=== PATIENT | female | born 1970 | race African-American/Black ===

== ENCOUNTER → 2020-03-11 | Outpatient (CLI) | payer OTHER ==
--- NOTE | 2020-03-11 09:54 | CARD ---
MR#: [id number] Date of Study: 03/11/2020 Ordering Physician: MELISSA PHILLIPS, Referring Physician: MELISSA PHILLIPS Tech: Mallory Last RDCS APPROVED REPORT EXAM: Two-dimensional and M-mode echocardiogram with Doppler and color Doppler. Other Information Quality : Good INDICATION Syncope 2D DIMENSIONS RVDd2.8 (2.9-3.5cm)Left Atrium(2D)2.8 (1.6-4.0cm) IVSd0.9 (0.7-1.1cm)Aortic Root(2D)2.6 (2.0-3.7cm) LVDd4.2 (3.9-5.9cm)LVOT Diameter2.1 (1.8-2.4cm) PWd1.1 (0.7-1.1cm)LVDs2.6 (2.5-4.0cm) FS (%) 36.4 %SV51.1 ml LVEF(%)60.0 (>50%) Aortic Valve AoV Peak Primo.130.8cm/sAoV VTI30.7cm AO Peak GR.6.8mmHgLVOT Peak Primo.113.9cm/s LVOT VTI 23.29cmAO Mean GR.4mmHg CALIXTO (VMAX)2.97as5HLL (VTI)2.55cm2 Mitral Valve MV E Lejknppw34.8cm/sMV DECEL MYTP158ey MV A Zfkbztxm51.6cm/sMV PXR13re E/A Ratio1.2MVA (PHT)4.55cm2 TDI E/Lateral E'6.5E/Medial E'8.7 Tricuspid Valve TR P. Tvrhulkz950de/sRAP XUFNHXWK7sbOv TR Peak Gr.85jqBnQQQI68blVs Pulmonary Vein S1 Ktzvcxsv70.3cm/sD2 Ubphbuyt69.5cm/s LEFT VENTRICLE The left ventricle is normal size. There is normal left ventricular wall thickness. The left ventricu lar systolic function is normal and the ejection fraction is within normal range. The Ejection Fracti on is 55-60%. There is normal LV segmental wall motion. The left ventricular diastolic function and f illing is normal for age. RIGHT VENTRICLE The right ventricle is normal size. The right ventricular systolic function is normal. ATRIA The left atrium size is normal. The right atrium size is normal. The interatrial septum is intact wit h no evidence for an atrial septal defect or patent foramen ovale as noted on 2-D or Doppler imaging. AORTIC VALVE The aortic valve is mildly thickened but opens well. Doppler and Color Flow revealed no significant a ortic regurgitation. There is no significant aortic valvular stenosis. MITRAL VALVE The mitral valve is normal in structure and function. There is no evidence of mitral valve prolapse. There is no mitral valve stenosis. Doppler and Color-flow revealed trace mitral regurgitation. TRICUSPID VALVE The tricuspid valve is normal in structure and function. Doppler and Color Flow revealed trace tricus pid regurgitation. The PA pressure was estimated at 22 mmHg. There is no tricuspid valve stenosis. PULMONIC VALVE The pulmonary valve is normal in structure and function. Doppler and Color Flow revealed mild pulmoni c valvular regurgitation. There is no pulmonic valvular stenosis. GREAT VESSELS The aortic root is normal in size. The ascending aorta is normal in size. The IVC is normal in size a nd collapses >50% with inspiration. PERICARDIAL EFFUSION There is no evidence of significant pericardial effusion. Critical Notification Critical Value: No <Conclusion> The left ventricular systolic function is normal and the ejection fraction is within normal range. Th e Ejection Fraction is 55-60%. There is normal LV segmental wall motion. Signed by : Martir Lawler, Electronically Approved : 03/11/2020 09:54:18
== END | disposition home or self-care (01) ==
LOC: ECHO 08:40
PROVIDERS: ATTEND Internal Medicine Cardiovascular Disease
DX: I37.1 Nonrheumatic pulmonary valve insufficiency (principal)
CPT/HCPCS: 93306

== ENCOUNTER → 2020-03-15 | Outpatient (CLI) | payer OTHER ==
[~2020-03-15] MED LIST: REGADENOSON 0.4 MG/5 ML DISP.SYRIN. IV ONE
--- NOTE | 2020-03-15 12:31 | RAD ---
MR#: [id number] Date of Study: 03/15/2020 Ordering Physician: MELISSA PHILLIPS Referring Physician: LIZBET BAH Tech: RT Jorge Fish) (N) APPROVED REPORT Test Type: Pharmacological Stress Nurse/Tech: Renata Reilly R.N. Test Indications: D O E Cardiac History: Hypertension Medications: See Electronic Medical Record Medical History: See Electronic Medical Record Resting ECG: s. rob Resting Heart Rate: 48 bpm Resting Blood Pressure: 138/74mmHg Pretest Chest Pain: No chest pain Nurse/Tech Notes S1S2, lungs sound clear Consent: The procedure was explained to the patient in lay terms. Informed consent was witnessed. Haider eout was entered into [employer]. History and Stress Test performed by RT Jorge Muro) (N) Pharm. Details Pharmacologic stress testing was performed using 0.4mg per 5ml of regadenoson given intravenously ove r 7-10 seconds. Stress Symptoms Dyspnea POST EXERCISE Reason for Termination: Infusion complete Target HR: 143 Max HR: 108 bpm Max Blood Pressure: 139/74mmHg Blood Pressure response to exercise: Normal blood pressure response during stress. Chest Pain: No. Arrhythmia: No. ST Change: No. INTERPRETATION Stress EKG Conclusion: Baseline EKG showed sinus bradycardia. No ischemic changes at peak stress. N o arrhythmias. Rest: Stress: Viability: Radiopharm.Tc99m XxlvfykerUl52o Sestamibi Dose11.5mCi 32.1mCi Duration 13min. 13min. Img Date 03/15/2020 03/15/2020 Inj-Img Lpfz55rfc. 60min. Rest Admin Site:IV - Left HandAdministrator:RT Jorge Fish)(N) Stress Admin Site: IV - Left HandAdministrator: RT Jorge Muro)(N) STRESS DATA End Diast. Vol.70.0mlAv. Heart Rate76.0bpm End Syst. Vol.15.0mlCO Index BSA0.0L/min Myocardial Bjub949.0gEject. Ceaowibq61.0% Stress Rates Pk. Fill Rate3.84EDV/secLVtime Pk. Fill 245.06msec Pk. Empty Rate4.67ESV/secLVtime Pk. Gzcfp732.30msec 1/3 Pk. Fill1.07EDV/sec Stress Scores Regional WT0.00Summed WT0.00 Regional WM0.00Summed WM1.00 Study quality was good. Left Ventricular size was Normal at Rest and Stress. Lung uptake was . Left Ventricular ejection fraction is 76%. The rest and stress images show normal perfusion, normal contraction and thickening. LV Perf. Quant 17 Seg. SSS0.00 17 Seg. SRS2.00 17 Seg. SDS0.00 Stress Defect Extent (% LAD)0.00Rest Defect Extent (% LAD)5.60Rev. Defect Extent (% LAD)0.00 Stress Defect Extent (% LCX) 0.00Rest Defect Extent (% LCX)0.00Rev. Defect Extent (% LCX)0.00 Stress Defect Extent (% RCA)0.00Rest Defect Extent (% RCA)0.00Rev. Defect Extent (% RCA)0.00 Stress Defect Extent (% GERMAINE)0.00Rest Defect Extent (% GERMAINE)3.70Rev. Defect Extent (% GERMAINE)0.00 Conclusion 1. Regadenoson cardioisotope stress test did not show any evidence of ischemia or infarct. 2. Normal left ventricular systolic function with ejection fraction calculated at 76%. 3. Low risk for cardiac events. Signed by : Melissa Phillips, Electronically Approved : 03/15/2020 12:31:19
== END | disposition home or self-care (01) ==
LOC: NM 08:30
PROVIDERS: ATTEND Internal Medicine Cardiovascular Disease
DX: I10 Essential (primary) hypertension (principal); R06.09 Other forms of dyspnea; R00.1 Bradycardia, unspecified
CPT/HCPCS: 78452; 93017; A9500; J2785

== ENCOUNTER 2020-03-28 11:47 | Inpatient (IN) | payer OTHER ==
[~2020-03-28] VITALS: Ht 162.6 cm; Wt 101.0 kg
[2020-03-28 13:03] LABS: BASO % 0 % (0-3); EOS # 0.1 x10^3/uL (0.0-0.7); EOS % 2 % (0-3); HEMATOCRIT 36.2 % (36.0-47.0); HEMOGLOBIN 11.6 g/dL (12.0-15.5); LYMPH # 1.6 x10^3/uL (1.0-4.8); LYMPH % 50 % (24-48); MEAN CORPUSCULAR HEMOGLOBIN 24 pg (25-35); MEAN CORPUSCULAR HGB CONC 32 g/dL (31-37); MEAN CORPUSCULAR VOLUME 75 fL (79-100); MONO # 0.2 x10^3/uL (0.0-1.1); MONO % 7 % (0-9); NEUT # 1.3 x10^3/uL (1.8-7.7); NEUT % 41 % (31-73); PLATELET COUNT 264 x10^3/uL (140-400); RED BLOOD COUNT 4.82 x10^6/uL (3.50-5.40); RED CELL DISTRIBUTION WIDTH 21.2 % (11.5-14.5); WHITE BLOOD COUNT 3.2 x10^3/uL (4.0-11.0)
[2020-03-28 13:12] LABS: PROTHROMBIN TIME PATIENT 12.7 SEC (11.7-14.0)
[2020-03-28 13:14] LABS: CALCIUM 9.2 mg/dL (8.5-10.1); CREATININE 1.1 mg/dL (0.6-1.0); GFR 63.4
--- NOTE | 2020-03-28 13:18 | RAD ---
CT HEAD WO CONTRAST Date: 03/28/2020 1:03 PM Clinical Indication: Reason: syncope / Spl. Instructions: / History: Comparison: None. Technique: 5 mm axial tomographic images were obtained of the head without contrast. These were viewed on brain and bone windows. One or more of the following dose reduction techniques were utilized: Automated exposure control (AEC), Adjustment of mA and/or kV according to patient size, Use of iterative reconstruction technique such as ASiR, CT scan done according to ALARA and image gently/image wisely Findings: The brain parenchyma is normal in attenuation. No intra- or extra-axial mass or fluid collection. No acute hemorrhage. The ventricles are normal in size, shape, and morphology. The sapp-white matter junction is normal. The subarachnoid cisterns are patent. The visualized paranasal sinuses are normal. The visualized portions of the orbits and globes are normal. The mastoid air cells are clear. The learning disabilities resource teacher topogram shows no lytic lesion or fracture. Impression: No acute intracranial process. Electronically signed by: Lawrence Coats MD (03/28/2020 1:15 PM) [id number]
[2020-03-28 13:20] LABS: ALBUMIN 3.4 g/dL (3.4-5.0); ALBUMIN/GLOBULIN RATIO 0.9 (1.0-1.7); MAGNESIUM 2.1 mg/dL (1.8-2.4); TOTAL BILIRUBIN 0.5 mg/dL (0.2-1.0)
[2020-03-28 13:23] LABS: ANISOCYTOSIS SLIGHT; PLT ESTIMATE ADEQUATE (ADEQUATE)
--- NOTE | 2020-03-28 13:23 | RAD ---
EXAM: Chest, single view. HISTORY: Syncope. COMPARISON: None. FINDINGS: A frontal view of the chest is obtained. There is no infiltrate, pleural effusion or pneumothorax. The heart is normal in size. There is an incidental azygos lobe. IMPRESSION: No acute pulmonary finding. Electronically signed by: Cele Bautista MD (03/28/2020 1:20 PM) [id number]
[2020-03-28 13:45] LABS: BILIRUBIN,URINE NEGATIVE (NEG); CLARITY,URINE CLEAR; COLOR,URINE YELLOW; NITRITE,URINE NEGATIVE (NEG); PROTEIN,URINE NEGATIVE (NEG-TRACE)
--- NOTE | 2020-03-28 13:53 | PHYS DOC ---
Past Medical History Past Medical History: Arthritis, Hypertension Additional Past Medical Histor: RA Past Surgical History: Tubal ligation Additional Past Surgical Histo: GASTRIC BYPASS Smoking Status: Never Smoker Alcohol Use: None General Adult EDM: Chief Complaint: SYNCOPE HPI: HPI: Patient is a 49 year old female who was sent here from her family physician clinic due to passing out in the office or having a seizure.. Patient was there for routine follow-up, staff noticed that when she was sitting in the chair she was shaking acting like she had a seizure she was passed out. Patient has history of passing out in the past and she was seen by pole framer machine and maribeth rology before but did not find a reason. Review of Systems: Review of Systems: Constitutional: Denies fever or chills. [] Eyes: Denies change in visual acuity. [] HENT: Denies nasal congestion or sore throat. [] Respiratory: Denies cough or shortness of breath. [] Cardiovascular: Denies chest pain or edema. [] GI: Denies abdominal pain, nausea, vomiting, bloody stools or diarrhea. [] : Denies dysuria. [] Musculoskeletal: Denies back pain or joint pain. [] Integument: Denies rash. [] Neurologic: Denies headache, focal weakness or sensory changes. Positive for passing out and seizure activity Endocrine: Denies polyuria or polydipsia. [] Lymphatic: Denies swollen glands. [] Psychiatric: Denies depression or anxiety. [] Heart Score: Risk Factors: Risk Factors: DM, Current or recent (<one month) smoker, HTN, HLP, family history of CAD, obesity. Risk Scores: Score 0 - 3: 2.5% MACE over next 6 weeks - Discharge Home Score 4 - 6: 20.3% MACE over next 6 weeks - Admit for Clinical Observation Score 7 - 10: 72.7% MACE over next 6 weeks - Early Invasive Strategies Allergies: Allergies: Allergies Coded Allergies Type Severity Reaction Last Updated Verified No Known Drug Allergies 03/15/20 No Physical Exam: PE: Constitutional: Well developed, well nourished, no acute distress, non-toxic appearance. [] HENT: Normocephalic, atraumatic, bilateral external ears normal, oropharynx moist, no oral exudates, nose normal. [] Eyes: PERRLA, EOMI, conjunctiva normal, no discharge. [] Neck: Normal range of motion, no tenderness, supple, no stridor. [] Cardiovascular:Heart rate regular rhythm, no murmur [] Lungs & Thorax: Bilateral breath sounds clear to auscultation [] Abdomen: Bowel sounds normal, soft, no tenderness, no masses, no pulsatile masses. [] Skin: Warm, dry, no erythema, no rash. [] Back: No tenderness, no CVA tenderness. [] Extremities: No tenderness, no cyanosis, no clubbing, ROM intact, no edema. [] Neurologic: Alert and oriented X 3, normal motor function, normal sensory function, no focal deficits noted. [] Psychologic: Affect normal, judgement normal, mood normal. [] Current Patient Data: Labs: Laboratory Tests Test 03/28/20 12:45 White Blood Count 3.2 x10^3/uL (4.0-11.0) L Red Blood Count 4.82 x10^6/uL (3.50-5.40) Hemoglobin 11.6 g/dL (12.0-15.5) L Hematocrit 36.2 % (36.0-47.0) Mean Corpuscular Volume 75 fL (79-100) L Mean Corpuscular Hemoglobin 24 pg (25-35) L Mean Corpuscular Hemoglobin Concent 32 g/dL (31-37) Red Cell Distribution Width 21.2 % (11.5-14.5) H Platelet Count 264 x10^3/uL (140-400) Neutrophils (%) (Auto) 41 % (31-73) Lymphocytes (%) (Auto) 50 % (24-48) H Monocytes (%) (Auto) 7 % (0-9) Eosinophils (%) (Auto) 2 % (0-3) Basophils (%) (Auto) 0 % (0-3) Neutrophils # (Auto) 1.3 x10^3/uL (1.8-7.7) L Lymphocytes # (Auto) 1.6 x10^3/uL (1.0-4.8) Monocytes # (Auto) 0.2 x10^3/uL (0.0-1.1) Eosinophils # (Auto) 0.1 x10^3/uL (0.0-0.7) Basophils # (Auto) 0.0 x10^3/uL (0.0-0.2) Platelet Estimate Adequate (ADEQUATE) Anisocytosis Slight Prothrombin Time 12.7 SEC (11.7-14.0) Prothrombin Time INR 1.0 (0.8-1.1) Sodium Level 139 mmol/L (136-145) Potassium Level 4.0 mmol/L (3.5-5.1) Chloride Level 105 mmol/L (98-107) Carbon Dioxide Level 22 mmol/L (21-32) Anion Gap 12 (6-14) Blood Urea Nitrogen 19 mg/dL (7-20) Creatinine 1.1 mg/dL (0.6-1.0) H Estimated GFR (Cockcroft-Gault) 63.4 BUN/Creatinine Ratio 17 (6-20) Glucose Level 85 mg/dL (70-99) Calcium Level 9.2 mg/dL (8.5-10.1) Magnesium Level 2.1 mg/dL (1.8-2.4) Total Bilirubin 0.5 mg/dL (0.2-1.0) Aspartate Amino Transferase (AST) 12 U/L (15-37) L Alanine Aminotransferase (ALT) 15 U/L (14-59) Alkaline Phosphatase 72 U/L (46-116) Troponin I Quantitative < 0.017 ng/mL (0.000-0.055) SM-Qsw-A-Type Natriuretic Peptide 156 pg/mL (0-124) H Total Protein 7.0 g/dL (6.4-8.2) Albumin 3.4 g/dL (3.4-5.0) Albumin/Globulin Ratio 0.9 (1.0-1.7) L Lipase 67 U/L (73-393) L Laboratory Tests 03/28/20 12:45 Laboratory Tests 03/28/20 12:45 Vital Signs: Vital Signs Date Time Temp Pulse Resp B/P (MAP) Pulse Ox O2 Delivery O2 Flow Rate FiO2 03/28/20 12:50 52 132/79 (96) 100 Room Air 03/28/20 11:50 97.8 18 97.8 EKG: EKG: EKG was done at 1152, heart rate of 55 bpm, normal sinus rhythm, no ST segment elevation. Radiology/Procedures: Radiology/Procedures: [][facility] [address] [place] [address] IMAGING REPORT Signed PATIENT: RONIT BERRY ACCOUNT: [id number] : 1970 LOCATION: ER AGE: 49 SEX: F EXAM STATUS: REG ER ORD. PHYSICIAN: ROLANDO VAN DO REASON: syncope PROCEDURE: CT HEAD WO CONTRAST CT HEAD WO CONTRAST Date: 03/28/2020 1:03 PM Clinical Indication: Reason: syncope / Spl. Instructions: / History: Comparison: None. Technique: 5 mm axial tomographic images were obtained of the head without contrast. These were viewed on brain and bone windows. One or more of the following dose reduction techniques were utilized: Automated exposure control (AEC), Adjustment of mA and/or kV according to patient size, Use of iterative reconstruction technique such as ASiR, CT scan done according to ALARA and image gently/image wisely Findings: The brain parenchyma is normal in attenuation. No intra- or extra-axial mass or fluid collection. No acute hemorrhage. The ventricles are normal in size, shape, and morphology. The sapp-white matter junction is normal. The subarachnoid cisterns are patent. The visualized paranasal sinuses are normal. The visualized portions of the orbits and globes are normal. The mastoid air cells are clear. The regulatory compliance director topogram shows no lytic lesion or fracture. Impression: No acute intracranial process. Electronically signed by: Yasemin Coats MD (03/28/2020 1:15 PM) [id number] DICTATED and SIGNED BY: YASEMIN COATS MD DATE: 03/28/20 1315 Course & Med Decision Making: Course & Med Decision Making Pertinent Labs and Imaging studies reviewed. (See chart for details) Patient is a 49-year-old female who was sent here from her family physician office due to seizure activity or syncopal episode while she was in the office today for a regular routine follow-up. Her family doctor wanted to be admitted to the hospital for MRI of her brain and neurology evaluation. Patient has history of passing out like this in the past, she was seen by neurologist and pole framer machine in the past but no reason was found. Patient denies any headache, no neck pain, no abdominal pain, no chest pain at this time. Dragon Disclaimer: Dragon Disclaimer: This electronic medical record was generated, in whole or in part, using a voice recognition dictation system. Departure Departure Impression: Primary Impression: Seizure Additional Impression: Syncope Disposition: 09 ADMITTED INPATIENT Admitting Physician: Efrain Sunshine Condition: STABLE Referrals: EFRAIN SUNSHINE MD (PCP) Justicifation of Admission Dx: Justifications for Admission: Justification of Admission Dx: N/A ROLANDO VAN DO Mar 28, 2020 13:53
[2020-03-28 13:55] LABS: BACTERIA,URINE 0 /HPF (0-FEW); RBC,URINE OCC /HPF (0-2); SQUAMOUS EPITHELIAL CELL,UR OCC /LPF; WBC,URINE OCC /HPF (0-4)
[2020-03-28] MEDS ORDERED: ACETAMINOPHEN 500 MG TABLET PO ONE (14:00)
[2020-03-28] MEDS ORDERED: ONDANSETRON PF 4 MG/2 ML VIAL. IV PRN (14:00)
[2020-03-28] MEDS ORDERED: HYDROcodone/APAP 5/325MG 1 TAB TABLET PO PRN (16:45)
[2020-03-28] MEDS ORDERED: UPAD15TA PO (16:48)
[2020-03-28] MEDS ORDERED: LISI10TA2 PO (16:48)
[2020-03-28] MEDS ORDERED: MELO15TA23 PO (16:48)
[2020-03-28 18:51] VITALS: BP 113/57
[2020-03-28 19:00] VITALS: BP 106/73
[2020-03-28] MEDS: HYDROcodone/APAP 5/325MG 1 TAB TABLET PO PRN (21:32)
[2020-03-28 23:00] VITALS: BP 103/62
[2020-03-29 03:00] VITALS: BP 112/71
--- NOTE | 2020-03-29 03:07 | EKG ---
[facility] [address] [place] [address] Test Date: 2020-03-28 Test Time: 11:52:37 Pat Name: RONIT BERRY Department: Room: Gender: F Mental Health Program Specialist: QUAN : 1970 Requested By: ROLANDO VAN Order Number: [id number] Reading MD: Measurements Intervals [place] Rate: 55 P: 24 [place]: 132 QRS: 47 QRSD: 78 T: 42 QT: 418 QTc: 402 Interpretive Statements SINUS RHYTHM NORMAL ECG RI6.01 No previous ECG available for comparison
[2020-03-29] MEDS: HYDROcodone/APAP 5/325MG 1 TAB TABLET PO PRN ×2 (03:28→13:11)
[2020-03-29 04:59] LABS: CHOLESTEROL/HDL RATIO 2.8
[2020-03-29 07:00] VITALS: BP 126/96
[2020-03-29] MEDS: MELOXICAM 7.5 MG TABLET PO SCH (07:47)
[2020-03-29] MEDS: UPADACITINIB 15 MG PO SCH (07:48)
[2020-03-29] MEDS: LISINOPRIL 10 MG TABLET PO SCH (07:48)
--- NOTE | 2020-03-29 09:17 | PDOC ---
Provider Note Provider Note Pt seen.H&P.done.##[id number]. Justicifation of Admission Dx: Justifications for Admission: Justification of Admission Dx: N/A WINNIE SUNSHINE MD Mar 29, 2020 09:17
[2020-03-29] MEDS ORDERED: POLYETHYLENE GLYCOL 3350 17 GM PACKET. PO PRN (09:45)
[2020-03-29 11:00] VITALS: BP 124/78
--- NOTE | 2020-03-29 11:08 | NUR ---
SW following. Discussed with RN, pt from home, regular diet. PT having EEG. Pt can't have an MRI until after seen by Dr. Granado, potential to discharge if okay with Dr. Granado. RN advised no SW needs.
--- NOTE | 2020-03-29 11:54 | HP ---
ADMIT DATE: 03/28/2020 MEDICAL HISTORY AND PHYSICAL PATIENT LOCATION: 530. REASON FOR ADMISSION TO THE HOSPITAL: Seizure activity, new onset. HISTORY OF PRESENT ILLNESS: The patient is a 49-year-old female. The patient says she was not feeling well Saturday and she has headache and thinks she may have a seizure-like activity, and she was brought to the office by her mother; and during our visit, the patient was saying that she was not feeling well, headache, and then she became unresponsive. She did not lose her pulse or blood pressure, oxygen was good, but her eyes were rolling and she was not aware of the surroundings. She did not have classical jerky movement; but after 10 minutes, she was more awake and paramedics was called in the meantime and the patient was a little bit dazed, complained of headache, a little bit of unsteady gait, and the patient was sent to the ER for further evaluation. CT head was negative. Of note, the patient had this kind of episode at least 2 times in the past. She was at [facility], had CT head 2 times, MRI of the brain 1 time. She had seen a neurologist at [facility] and he was not sure, had an EEG 1 time and she was recommended inpatient 3-day monitoring, but the patient refused that, did not want to follow with him. In the meantime, we were looking for other causes of syncopal episodes, like stress test and echo was done in the last couple of weeks ago that was normal. PAST MEDICAL HISTORY: Hypertension, rheumatoid arthritis. PAST SURGICAL HISTORY: Had a gastric bypass surgery, tubal ligation. ALLERGIES: No known drug allergies. MEDICATIONS AT HOME: The patient is on lisinopril 10 mg daily, meloxicam 15 mg daily, Rinvoq ER 15 mg daily for arthritis. PERSONAL HISTORY: Denies smoking, alcohol or drug abuse. FAMILY HISTORY: Positive for rheumatoid arthritis in the mother. SOCIAL HISTORY: The patient works for [employer]. 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 REVIEW OF SYMPTOMS: Mostly headache at this time and denies any chest pain or shortness of breath. PHYSICAL EXAMINATION: GENERAL: Pleasant, not in any distress. The patient is making good conversation, aware of the surroundings. VITAL SIGNS: Temperature 97, pulse 62, respirations 20, blood pressure 120/71 and 100% saturation. HEENT: Head is atraumatic. Pupils are equal. Oral cavity, no congestion. NECK: Supple. Thyroid not enlarged. JVD not elevated. CHEST: Symmetrical. CARDIOVASCULAR: S1, S2. LUNGS: Clear to auscultation. ABDOMEN: Soft. No mass palpable. EXTERNAL GENITALIA: Deferred. EXTREMITIES: No calf tenderness, no edema. NEUROLOGIC: Cranial nerves intact. Power 5/5 in all extremities. No focal deficits noted. LABORATORY DATA: Shows a white count of 3.2, hemoglobin 11.6, platelets 264. INR 1.2. Electrolytes show sodium 139, potassium 4.0, chloride 105, bicarbonate 22, BUN 19, creatinine 1.1, glucose 85. LFTs normal. TSH 2.8. Cholesterol, LDL 123. Urine was negative. Chest x-ray was negative. CT head was negative. FINAL IMPRESSION: 1. Period of unresponsiveness, looks like a seizure. 2. This is the third or fourth episode this happened. 3. Hypertension. 4. Rheumatoid arthritis. 5. History of weight loss surgery, she had a gastric bypass. PLAN: At this time, as mentioned, the patient had 2 ER visits in the past at [facility], had CT head 2 times, this is the third CT negative. 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 The patient had an EEG in the past at [facility] did not show any seizure activity, she was recommended continuous seizure EEG monitoring, but the patient did not follow with that. We will consult Neurology here, maybe repeat MRI of the brain; and depending on the neurologic evaluation, we may have to put her on medications. Recommended no driving automobile or swimming or climbing heights because of seizure . She was recommended short-term disability. WINNIE SUNSHINE MD DR: NAHUN/rudi JOB#: [id number] / [id number] ANTONIO
--- NOTE | 2020-03-29 12:31 | EKG ---
[facility] [address] [place] [address] Test Date: 2020-03-29 Test Time: 12:19:44 Pat Name: RONIT BERRY Department: Room: [facility] Gender: F Profile Grinder: TEMITOPE : 1970 Requested By: WINNIE SUNSHINE Order Number: [id number] Reading MD: Martir Lawler MD Measurements Intervals [place] Rate: 68 P: 66 FL: 122 QRS: 67 QRSD: 78 T: 48 QT: 396 QTc: 426 Interpretive Statements SINUS RHYTHM Electronically Signed On 03-29-2020 14:24:26 CDT by Martir Lawler MD
--- NOTE | 2020-03-29 12:44 | NUR ---
Rapid Response: Initial call was for CP rating 10/10. Upon my arrival CP easing off. 12 lead being completed. Pt on 2LNC, 147/75, HR 71 with 100% sats. Breathing rapidly Glucose checked 74 Pt able to answer questions with repetitively asking. After orange juice given pt had a 30-45 second seizure. Eyes rolled back and gurgling breathing. After seizure pt postictal very groggy. Glucose rechecked 104, 151/98 HR [address]% [address] Regan notified and orders received. Dr Pedraza paged with consult awaiting call back. Pt resting in room. Lab here to draw labs., Addendum: 03/29/20 at 1253 by BOONE LEAL RN Amended: Links added.
[2020-03-29] MEDS: levETIRAcetam 500 MG TABLET PO SCH ×2 (13:08→21:39)
[2020-03-29 13:41] LABS: CALCIUM 9.1 mg/dL (8.5-10.1); CREATININE 1.2 mg/dL (0.6-1.0); GFR 57.3; POTASSIUM 4.6 mmol/L (3.5-5.1)
[2020-03-29 13:46] LABS: ALBUMIN 3.5 g/dL (3.4-5.0); TOTAL BILIRUBIN 0.4 mg/dL (0.2-1.0); TOTAL PROTEIN 6.9 g/dL (6.4-8.2)
[2020-03-29 15:00] VITALS: BP 107/68
--- NOTE | 2020-03-29 16:04 | PDOC2 ---
NEUROLOGY CONSULT Date of Admission Date of Admission Full Report Dictated Patient is a 49-year-old woman whose had recurrent spells. She is undergone an MRI brain with and without contrast and prolonged EEG Sada was unremarkable. As I was dictating her report the nurse called me and for another spell. Her eyes were blinking and she was laying still on her back. I did a sternal rub and asked her a question and she nodded her head in response. This is not likely a seizure as she would not be able to respond if she were having a generalized seizure. I had the nurse check vital signs with normal blood pressure and pulse and good oxygenation. Blood glucose was in the normal range. She has not been feeling well lately and the spells may be in response to the stress. She had a normal echocardiogram on March 11, 2020. Blood work has also not been remarkable. She was started on levetiracetam by her primary care physician. If seizure is a concern then prolonged video EEG monitoring at [facility] could be arranged by her primary care physician. It is difficult to justify continued Keppra when the spells are often quite infrequent. So far the Keppra has not stopped the spells. DATE: 03/29/20 TIME: 16:01 Current Medications Current Medications Current Medications Ondansetron HCl (Zofran) 4 mg PRN Q8HRS PRN IV NAUSEA/VOMITING; Start 03/28/20 at 14:00; Stop 03/29/20 at 13:59; Status DC Acetaminophen (Tylenol) 1,000 mg 1X ONCE PO Last administered on 03/28/20at 14:10; Start 03/28/20 at 14:00; Stop 03/28/20 at 14:07; Status DC Acetaminophen/ Hydrocodone Bitart (Lortab 5/325) 1 tab PRN Q6HRS PRN PO PAIN Last administered on 03/28/20at 17:08; Start 03/28/20 at 16:45; Stop 03/29/20 at 11:17; Status DC Lisinopril (Prinivil) 10 mg DAILY PO Last administered on 03/29/20at 07:48; Start 03/29/20 at 09:00 Meloxicam (Mobic) 15 mg DAILY PO Last administered on 03/29/20at 07:47; Start 03/29/20 at 09:00 Non-Formulary Medication (Upadacitinib (Rinvoq ER)) 15 mg DAILY PO ; Start 03/29/20 at 09:00; Status UNV Acetaminophen/ Hydrocodone Bitart (Lortab 5/325) 1 tab PRN Q4HRS PRN PO PAIN Last administered on 03/29/20at 13:11; Start 03/28/20 at 21:30 Sumatriptan Succinate (Imitrex) 25 mg BID PO Last administered on 03/29/20at 07:47; Start 03/28/20 at 23:00; Stop 03/31/20 at 09:31 Polyethylene Glycol (miraLAX PACKET) 17 gm PRN DAILY PRN PO CONSTIPATION; Start 03/29/20 at 09:45 Levetiracetam (Keppra) 500 mg BID PO Last administered on 03/29/20at 13:08; Start 03/29/20 at 13:00 Lorazepam (Ativan Inj) 1 mg PRN Q4HRS PRN IVP ANXIETY / AGITATION; Start 03/29/20 at 12:45 Active Scripts Active Reported Rinvoq ER (Upadacitinib) 15 Mg Tab.er.24h 15 Mg PO DAILY Meloxicam 15 Mg Tablet 1 Tab PO DAILY 30 Days Lisinopril 10 Mg Tablet 1 Tab PO DAILY Allergies Allergies: Coded Allergies: No Known Drug Allergies (Unverified , 03/15/20) Vitals VITALS Vital Signs Date Time Temp Pulse Resp B/P (MAP) Pulse Ox O2 Delivery O2 Flow Rate FiO2 03/29/20 15:00 97.9 71 18 107/68 (81) 99 Nasal Cannula 2.0 97.9 Labs Labs Laboratory Tests Test 03/28/20 12:45 03/28/20 13:30 03/29/20 03:46 03/29/20 12:25 White Blood Count 3.2 x10^3/uL (4.0-11.0) Red Blood Count 4.82 x10^6/uL (3.50-5.40) Hemoglobin 11.6 g/dL (12.0-15.5) Hematocrit 36.2 % (36.0-47.0) Mean Corpuscular Volume 75 fL (79-100) Mean Corpuscular Hemoglobin 24 pg (25-35) Mean Corpuscular Hemoglobin Concent 32 g/dL (31-37) Red Cell Distribution Width 21.2 % (11.5-14.5) Platelet Count 264 x10^3/uL (140-400) Neutrophils (%) (Auto) 41 % (31-73) Lymphocytes (%) (Auto) 50 % (24-48) Monocytes (%) (Auto) 7 % (0-9) Eosinophils (%) (Auto) 2 % (0-3) Basophils (%) (Auto) 0 % (0-3) Neutrophils # (Auto) 1.3 x10^3/uL (1.8-7.7) Lymphocytes # (Auto) 1.6 x10^3/uL (1.0-4.8) Monocytes # (Auto) 0.2 x10^3/uL (0.0-1.1) Eosinophils # (Auto) 0.1 x10^3/uL (0.0-0.7) Basophils # (Auto) 0.0 x10^3/uL (0.0-0.2) Platelet Estimate Adequate (ADEQUATE) Anisocytosis Slight Prothrombin Time 12.7 SEC (11.7-14.0) Prothromb Time International Ratio 1.0 (0.8-1.1) Sodium Level 139 mmol/L (136-145) Potassium Level 4.0 mmol/L (3.5-5.1) Chloride Level 105 mmol/L (98-107) Carbon Dioxide Level 22 mmol/L (21-32) Anion Gap 12 (6-14) Blood Urea Nitrogen 19 mg/dL (7-20) Creatinine 1.1 mg/dL (0.6-1.0) Estimated GFR (Cockcroft-Gault) 63.4 BUN/Creatinine Ratio 17 (6-20) Glucose Level 85 mg/dL (70-99) Calcium Level 9.2 mg/dL (8.5-10.1) Magnesium Level 2.1 mg/dL (1.8-2.4) Total Bilirubin 0.5 mg/dL (0.2-1.0) Aspartate Amino Transf (AST/SGOT) 12 U/L (15-37) Alanine Aminotransferase (ALT/SGPT) 15 U/L (14-59) Alkaline Phosphatase 72 U/L (46-116) Troponin I Quantitative < 0.017 ng/mL (0.000-0.055) KR-[id number]-Type Natriuretic Peptide 156 pg/mL (0-124) Total Protein 7.0 g/dL (6.4-8.2) Albumin 3.4 g/dL (3.4-5.0) Albumin/Globulin Ratio 0.9 (1.0-1.7) Lipase 67 U/L (73-393) Urine Collection Type Unknown Urine Color Yellow Urine Clarity Clear Urine pH 7.0 (<5.0-8.0) Urine Specific [place] 1.015 (1.000-1.030) Urine Protein Negative mg/dL (NEG-TRACE) Urine Glucose (UA) Negative mg/dL (NEG) Urine Ketones (Stick) Negative mg/dL (NEG) Urine Blood Negative (NEG) Urine Nitrite Negative (NEG) Urine Bilirubin Negative (NEG) Urine Urobilinogen Dipstick 1.0 mg/dL (0.2 mg/dL) Urine Leukocyte Esterase Negative (NEG) Urine RBC Occ /HPF (0-2) Urine WBC Occ /HPF (0-4) Urine Squamous Epithelial Cells Occ /LPF Urine Bacteria 0 /HPF (0-FEW) Triglycerides Level 44 mg/dL (0-150) Cholesterol Level 204 mg/dL (0-200) LDL Cholesterol, Calculated 123 mg/dL (0-100) VLDL Cholesterol, Calculated 9 mg/dL (0-40) Non-HDL Cholesterol Calculated 132 mg/dL (0-129) HDL Cholesterol 72 mg/dL (40-60) Cholesterol/HDL Ratio 2.8 Thyroid Stimulating Hormone (TSH) 2.844 uIU/mL (0.358-3.74) Glucose (Fingerstick) 74 mg/dL (70-99) Test 03/29/20 12:35 03/29/20 13:00 Glucose (Fingerstick) 104 mg/dL (70-99) Sodium Level 141 mmol/L (136-145) Potassium Level 4.6 mmol/L (3.5-5.1) Chloride Level 106 mmol/L (98-107) Carbon Dioxide Level 27 mmol/L (21-32) Anion Gap 8 (6-14) Blood Urea Nitrogen 18 mg/dL (7-20) Creatinine 1.2 mg/dL (0.6-1.0) Estimated GFR (Cockcroft-Gault) 57.3 BUN/Creatinine Ratio 15 (6-20) Glucose Level 105 mg/dL (70-99) Calcium Level 9.1 mg/dL (8.5-10.1) Magnesium Level 2.2 mg/dL (1.8-2.4) Total Bilirubin 0.4 mg/dL (0.2-1.0) Aspartate Amino Transf (AST/SGOT) 15 U/L (15-37) Alanine Aminotransferase (ALT/SGPT) 21 U/L (14-59) Alkaline Phosphatase 76 U/L (46-116) Troponin I Quantitative < 0.017 ng/mL (0.000-0.055) Total Protein 6.9 g/dL (6.4-8.2) Albumin 3.5 g/dL (3.4-5.0) Albumin/Globulin Ratio 1.0 (1.0-1.7) Laboratory Tests Test 03/29/20 03:46 03/29/20 12:25 03/29/20 12:35 03/29/20 13:00 Triglycerides Level 44 mg/dL (0-150) Cholesterol Level 204 mg/dL (0-200) LDL Cholesterol, Calculated 123 mg/dL (0-100) VLDL Cholesterol, Calculated 9 mg/dL (0-40) Non-HDL Cholesterol Calculated 132 mg/dL (0-129) HDL Cholesterol 72 mg/dL (40-60) Cholesterol/HDL Ratio 2.8 Thyroid Stimulating Hormone (TSH) 2.844 uIU/mL (0.358-3.74) Glucose (Fingerstick) 74 mg/dL (70-99) 104 mg/dL (70-99) Sodium Level 141 mmol/L (136-145) Potassium Level 4.6 mmol/L (3.5-5.1) Chloride Level 106 mmol/L (98-107) Carbon Dioxide Level 27 mmol/L (21-32) Anion Gap 8 (6-14) Blood Urea Nitrogen 18 mg/dL (7-20) Creatinine 1.2 mg/dL (0.6-1.0) Estimated GFR (Cockcroft-Gault) 57.3 BUN/Creatinine Ratio 15 (6-20) Glucose Level 105 mg/dL (70-99) Calcium Level 9.1 mg/dL (8.5-10.1) Magnesium Level 2.2 mg/dL (1.8-2.4) Total Bilirubin 0.4 mg/dL (0.2-1.0) Aspartate Amino Transf (AST/SGOT) 15 U/L (15-37) Alanine Aminotransferase (ALT/SGPT) 21 U/L (14-59) Alkaline Phosphatase 76 U/L (46-116) Troponin I Quantitative < 0.017 ng/mL (0.000-0.055) Total Protein 6.9 g/dL (6.4-8.2) Albumin 3.5 g/dL (3.4-5.0) Albumin/Globulin Ratio 1.0 (1.0-1.7) BI QUIÑONEZ MD Mar 29, 2020 16:04
--- NOTE | 2020-03-29 18:10 | CONS ---
DATE OF CONSULTATION: 03/29/2020 REFERRING PHYSICIAN: Efrain Regan MD REASON FOR CONSULTATION: Recurrent loss of consciousness with shaking. HISTORY OF PRESENT ILLNESS: The patient is a pleasant 49-year-old woman who began to have spells of shaking in 2007. She has been feeling poorly for the last 5 days. Associated with just feeling poorly, has some headache. She has had some shaking episodes. She had a shaking episode while in Dr. Regan's office for evaluation. She was sent over to the hospital for direct admission. She has periodically had shaking spells which she thought might be seizure. I did have a report from [facility] where a similar event occurred requiring investigation. I have a report from 05/20/2019 which describes non-stereotypical shaking spells. The spells can last 10-20 minutes. She underwent investigation at that time by a neurologist from [facility]. She had an MRI brain with and without contrast, MRA of the intracranial arteries and prolonged EEG. I reviewed the results of the testing, which were unremarkable. At that time, they did not feel they were definitely seizures, but offered that if spells continued, she could come back for prolonged video EEG monitoring to try to capture some of the spells. She declined this followup. She has recently also had an echocardiogram on 03/11/2020. That was completely normal. She has had blood pressure measurements, which have also been in the normal range. She is frustrated that nobody can come up with the reason why she has shaking spells. PAST MEDICAL HISTORY: 1. Hypertension. 2. Rheumatoid arthritis for which she is on disease modifying therapy. 3. Gastric bypass surgery. 4. Bilateral tubal ligation. ALLERGIES: No known allergies to drugs. MEDICATIONS PRIOR TO ADMISSION: Lisinopril 10 mg, meloxicam 15 mg, and Rinvoq ER 15 mg. FAMILY HISTORY: Her mother has rheumatoid arthritis. SOCIAL HISTORY: She is single and denies having children. She lives with her mother. 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 She eats regularly and sleeps regularly. She does not smoke tobacco, drink alcohol or use recreational drugs. REVIEW OF SYSTEMS: She has periodic headache. There has been no change of vision or hearing. She has not had any cognitive loss. She does not have nose or sinus trouble. She has not had shortness of breath, cough or cold. She did have some chest pain earlier today. She does have bone and joint pain associated with rheumatoid arthritis. She has not had fever or rash. She usually only has bowel movements every few days, but this is normal for her. She does urinate frequently and has to get up once per night to go to the bathroom. She does not complain of numbness or focal weakness. She denies any psychiatric concerns, specifically anxiety or depression. She does not complain of easy bruising or excessive bleeding. She does not complain of swelling. PHYSICAL EXAMINATION: VITAL SIGNS: The blood pressure was 107/68, pulse 71, respirations 18, temperature 97.9 degrees Fahrenheit. Oximetry was 99% on 2 liters nasal cannula. GENERAL: She was alert, awake and cooperative. Speech was fluent and clear. She had a good fund of recent and remote knowledge. Attention and concentration was intact. She appeared well groomed and well nourished. She was fully oriented. NEUROLOGIC: Examination of the cranial nerves revealed visual loo were full to confrontation. Extraocular movements were intact. The eyes were conjugate. Pursuit movements were smooth and saccadic eye movements were without dysmetria. There was no nystagmus. Pupils were 2-3 mm. Funduscopic exam did not reveal papilledema, exudate or hemorrhage. Facial sensation was intact. The muscles of mastication and facial expression were powerful symmetrically. Hearing was intact to finger rub. The palate arched symmetrically and the tongue was midline with full of motion. There were no lacerations of the tongue or mouth. Muscle bulk and tone was normal. There was no arm or leg drift. There was no abnormal movement. Power was full and symmetric in the upper and lower extremities. Reflexes were 2/4 and symmetric in the upper and lower extremities. The toes were downgoing bilaterally. Coordination testing with [id number], [id number], fine motor and rapid alternating movements was well performed. The sensory examination was intact to pain, light touch, proprioception, graphesthesia, cold thermal and vibration. There was no extinction to double simultaneous stimulation. Gait was normal base and steady. She was able to walk on heels or toes. Tandem walk was well performed. The Romberg stance was negative. NECK: Auscultation of the carotid arteries did not reveal a bruit. HEART: Rhythm was regular without a murmur. EXTREMITIES: Peripheral pulses were 2/4 and symmetric in the wrists and feet. There was no edema or cyanosis. LABORATORY RESULTS: CBC was performed 03/28/2020 revealing a diminished white blood cell count at 3.2. Hemoglobin was also diminished at 11.6 with a normal hematocrit and platelet count. Chemistries were performed 03/29/2020 revealing normal electrolytes and BUN. Creatinine was elevated at 1.2, GFR calculated at 57.3. Glucose was 105. Calcium was normal. Liver enzymes were not elevated. Total protein and albumin were normal. Troponin was normal. Magnesium was normal. PT/INR was 1. Urinalysis was negative. CT scan of the brain was performed and negative on 03/28/2020. Chest x-ray performed on same day and was negative. IMPRESSION: The patient is a 49-year-old woman who is having spells of shaking. These do not seem to be seizure. If there is concern for seizure, I would recommend outpatient arrangement for a prolonged video EEG monitoring at [facility]. I will check orthostatic blood pressures. It is hard to recommend Keppra as the spells do not necessarily occur regularly. I appreciate being involved in her care. BI QUIÑONEZ MD DR: LYNSEY/rudi JOB#: [id number] / [id number] Dr. Jass Henderson Vinaya MD
[2020-03-29 19:00] VITALS: BP 111/73
[2020-03-29] MEDS ORDERED: predniSONE 10 MG TABLET PO ONE (21:00)
[2020-03-29 23:00] VITALS: BP 134/95
[2020-03-30 00:10] LABS: HEMOGLOBIN A1C 5.8 % (4.8-5.6)
[2020-03-30 03:00] VITALS: BP 123/81
[2020-03-30 07:56] VITALS: BP 101/57
[2020-03-30] MEDS: MELOXICAM 7.5 MG TABLET PO SCH (08:33)
[2020-03-30] MEDS: LISINOPRIL 10 MG TABLET PO SCH (08:34)
[2020-03-30] MEDS: levETIRAcetam 500 MG TABLET PO SCH (08:34)
[2020-03-30] MEDS ORDERED: predniSONE 10 MG TABLET PO SCH (09:00)
[2020-03-30] MEDS: UPADACITINIB 15 MG PO SCH (09:00)
--- NOTE | 2020-03-30 09:57 | NUR ---
[facility] following. Discussed with RN. Discharge order for home with self care. No SW needs. Addendum: 03/30/20 at 1440 by SHELBIE CHEUNG RN contacted [facility] advising Dr. Regan wants a transfer to because pt had a 30 minute seizure. [facility] phoned and faxed referral to , awaiting acceptance decision. Addendum: 03/30/20 at 1604 by SHELBIE CHEUNG [facility] declined due to no medical necessity, and this being an outpatient need. KELBY advised pt to contact the neurology department at to schedule appointment. [facility] notified RN. RN discussing with Dr. Regan and neurology.
--- NOTE | 2020-03-30 10:01 | PDOC ---
PROGRESS NOTES Subjective Subjective no new problems , had 2 episodes yesterday,witnessed by neurologist. Objective Objective Vital Signs Date Time Temp Pulse Resp B/P (MAP) Pulse Ox O2 Delivery O2 Flow Rate FiO2 03/30/20 08:34 48 101/57 03/30/20 07:56 97.8 18 98 Room Air 97.8 03/29/20 15:00 2.0 Intake and Output 03/30/20 07:00 Intake Total 1280 ml Output Total 0 ml Balance 1280 ml Intake Oral 1280 ml Output Urine Total 0 ml # Voids 4 Physical Exam Abdomen: Normal bowel sounds, Soft Heart: Regular rate, Normal S1 Extremities: No clubbing General: Alert HEENT: Atraumatic Lungs: Clear to auscultation MUSCULOSKELETAL: No deformity Neck: Supple Neuro: Normal speech Psych/Mental Status: Mental status NL Skin: No breakdown Diagnosis Problem List Problems Medical Problems: (1) Seizure Status: Acute (2) Syncope Status: Acute Assessment Assessment Problems Medical Problems: (1) Seizure Status: Acute (2) Syncope Status: Acute FINAL IMPRESSION: 1. Period of unresponsiveness, looks like a seizure VS Pseudo seizures. 2. This is the third or fourth episode this happened. 3. Hypertension. 4. Rheumatoid arthritis. 5. History of weight loss surgery, she had a gastric bypass. PLAN: pt had 2 episodes yesterday , onone episode neurologist was on the floor and evaluated the patient during the episode , He does not think it was a true seizure. Pt had mri+mra of brain 10 months ago at [facility] , CT head neg here EEG neg for seizures. low cortisol (borderline low).will monitor Neurology does not recommend start seizure medications will schedule 3 day continuous EEG monitoring at or [facility]. no driving or climbing height or swimming until the diagnosis is established. d/c home today. Plan Plan of Care Problems Medical Problems: (1) Seizure Status: Acute (2) Syncope Status: Acute Comment Review of Relevant I have reviewed the following items tay (where applicable) has been applied. Labs Laboratory Tests Test 03/29/20 12:25 03/29/20 12:35 03/29/20 13:00 03/29/20 16:01 Glucose (Fingerstick) 74 mg/dL (70-99) 104 mg/dL (70-99) 94 mg/dL (70-99) Sodium Level 141 mmol/L (136-145) Potassium Level 4.6 mmol/L (3.5-5.1) Chloride Level 106 mmol/L (98-107) Carbon Dioxide Level 27 mmol/L (21-32) Anion Gap 8 (6-14) Blood Urea Nitrogen 18 mg/dL (7-20) Creatinine 1.2 mg/dL (0.6-1.0) Estimated GFR (Cockcroft-Gault) 57.3 BUN/Creatinine Ratio 15 (6-20) Glucose Level 105 mg/dL (70-99) Calcium Level 9.1 mg/dL (8.5-10.1) Magnesium Level 2.2 mg/dL (1.8-2.4) Total Bilirubin 0.4 mg/dL (0.2-1.0) Aspartate Amino Transf (AST/SGOT) 15 U/L (15-37) Alanine Aminotransferase (ALT/SGPT) 21 U/L (14-59) Alkaline Phosphatase 76 U/L (46-116) Troponin I Quantitative < 0.017 ng/mL (0.000-0.055) Total Protein 6.9 g/dL (6.4-8.2) Albumin 3.5 g/dL (3.4-5.0) Albumin/Globulin Ratio 1.0 (1.0-1.7) Cortisol PM Sample 3.0 ug/dL (3.1-16.7) Medications Current Medications Levetiracetam (Keppra) 500 mg BID PO Last administered on 03/30/20at 08:34; Start 03/29/20 at 13:00 Lorazepam (Ativan Inj) 1 mg PRN Q4HRS PRN IVP ANXIETY / AGITATION Last administered on 03/29/20at 16:08; Start 03/29/20 at 12:45 Prednisone (Prednisone) 10 mg 1X ONCE PO Last administered on 03/29/20at 21:39; Start 03/29/20 at 21:00; Stop 03/29/20 at 21:01; Status DC Prednisone (Prednisone) 10 mg DAILY PO Last administered on 03/30/20at 08:34; Start 03/30/20 at 09:00 Vitals/I & O Vital Sign - Last 24 Hours 03/29/20 03/29/20 03/29/20 03/29/20 11:00 13:11 14:03 15:00 Temp 98.1 97.9 98.1 97.9 Pulse 51 71 Resp 18 20 20 18 B/P (MAP) 124/78 (93) 107/68 (81) Pulse Ox 100 100 100 99 O2 Delivery Room Air Room Air Room Air Nasal Cannula O2 Flow Rate 2.0 03/29/20 03/29/20 03/29/20 03/30/20 19:00 20:00 23:00 03:00 Temp 97.5 97.7 98.1 97.5 97.7 98.1 Pulse 61 74 57 Resp 18 18 18 B/P (MAP) 111/73 (86) 134/95 (108) 123/81 (95) Pulse Ox 100 100 100 O2 Delivery Room Air Room Air Room Air Room Air 03/30/20 03/30/20 07:56 08:34 Temp 97.8 97.8 Pulse 48 48 Resp 18 B/P (MAP) 101/57 (72) 101/57 Pulse Ox 98 O2 Delivery Room Air Intake and Output 03/29/20 03/29/20 03/30/20 15:00 23:00 07:00 Intake Total 600 ml 680 ml 0 ml Output Total 0 ml Balance 600 ml 680 ml 0 ml Justicifation of Admission Dx: Justifications for Admission: Justification of Admission Dx: N/A WINNIE SUNSHINE MD Mar 30, 2020 10:01
--- NOTE | 2020-03-30 10:05 | PDOC ---
Provider Note Provider Note Discharge summary dictated.#[id number]. Justicifation of Admission Dx: Justifications for Admission: Justification of Admission Dx: N/A WINNIE SUNSHINE MD Mar 30, 2020 10:05
[2020-03-30 11:00] VITALS: BP 130/77
--- NOTE | 2020-03-30 11:16 | DS ---
DATE OF DISCHARGE: 03/30/2020 REASON FOR ADMISSION TO THE HOSPITAL: Possible seizure, brief episode of unresponsiveness, possible syncope. CONSULTATION: Neurology, Dr. Pedraza. PROCEDURES DONE: CT head and EEG. COMPLICATIONS NOTED: None. HOSPITAL COURSE: The patient is a 49-year-old female. The patient has been having these episodes of periods of unresponsiveness. She thinks could be a seizure versus syncopal episodes. She has been in the ER at [facility] 2 times, had a CT head x 2. Had MRI of the brain at [facility], seen seizure specialist at [facility]. At that time, it was not clear-cut whether seizures or pseudoseizures, was recommended a 3-day continuous EEG monitoring. The patient did not follow with him. The patient had came to the office yesterday. She was having headaches and she was not feeling well. In the clinic, the patient had episode where she was rolling her eyes, and she became unresponsive for 5-10 minutes. She did not lose consciousness. She did not fall down, and she had a good blood pressure and pulse. She was not hypoxic or low sugars. The patient was admitted, sent to the ER for evaluation. CT head was negative. Neurology was consulted and the patient had 2 more episodes on the floor. Once a rapid was called, second time, Neurology was on the floor. He evaluated the patient. During evaluation of those episodes, she was conscious and talking in between and he did not think it was a true seizure. The Neurology did not recommend starting any seizure medication at this time, recommendation is to do a 3-day continuous EEG monitoring outpatient either at [facility] or and depending on that, then treatment to suggest, but at this point his diagnosis was possible pseudoseizures. FINAL DIAGNOSES: 1. 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 2. Hypertension. 3. History of rheumatoid arthritis, on special medications. 4. History of gastric bypass in the past. 5. Slightly borderline cortisol level, we will monitor. PLAN: At this time, the patient will be discharged home. Special instructions, not to drive, swim or climb heights because of possible seizures and we will schedule for a 3-day continuous EEG monitoring outpatient at [facility] or , and would follow with the Neurology outpatient and primary care outpatient. WINNIE SUNSHINE MD DR: NAHUN/rudi JOB#: [id number] / [id number]
[2020-03-30] MEDS: ACETAMINOPHEN 325 MG TABLET. PO PRN ×2 (13:40→20:35)
[2020-03-30 15:00] VITALS: BP 113/66
--- NOTE | 2020-03-30 16:52 | PDOC ---
PROGRESS NOTES Assessment Problems Medical Problems: (1) Seizure-she continues to have frequent recurrent spells of bilateral shaking and eye rolling with poor responsiveness. It is not entirely clear these represent seizure. At times I almost think she has some responsiveness. However, the only way to know if these represent seizure would be to capture some spells and determine if there is seizure activity. This would best be accomplished by prolonged time locked to video EEG monitoring. A call was placed to [facility] earlier today but they felt this would be an outpatient procedure. I am concerned that we cannot discharge her because she continues to have recurrent spells. I have placed a second call to the transfer center and will speak directly with the neurologist to explain the situation. She did have extensive investigation 1 year ago at [facility] which was not revealing. At that time they did recommend prolonged video EEG monitoring but she declined. She has had a change of heart. Status: Acute (2) Syncope Status: Acute Plan As above, I have placed another call to transfer center and will speak directly with the neurologist regarding the situation. It is possible there is no bed availability in which case she cannot be transferred. I do not feel that further head imaging is warranted. She had an MRI of her brain with and without contrast 1 year ago which was completely normal and a CT head on this occasion which was negative. She had a routine EEG a year ago which was not revealing but did not capture a spell. Subjective I did not know that I had 4 spells today. Sometimes I can feel them coming on but not all the time. Nurses report that she will be talking and her eyes will roll back and should become unresponsive. Objective Vital Signs Date Time Temp Pulse Resp B/P (MAP) Pulse Ox O2 Delivery O2 Flow Rate FiO2 03/30/20 15:00 98.0 82 16 113/66 (82) 98 Room Air 98.0 03/29/20 15:00 2.0 Intake and Output 03/30/20 07:00 Intake Total 1280 ml Output Total 0 ml Balance 1280 ml Intake Oral 1280 ml Output Urine Total 0 ml # Voids 4 PHYSICAL EXAM She was alert, awake and cooperative. Speech was fluent and clear. She had a good fund of recent and remote knowledge. Attention and concentration was intact. Her demeanor was pleasant and she was smiling. She did not appear to be in distress. The eyes were conjugate and face symmetric. Movements were symmetric and coordinated. Review of Relevant I have reviewed the following items tay (where applicable) has been applied. Labs Laboratory Tests Test 03/29/20 03:46 03/29/20 12:25 03/29/20 12:35 03/29/20 13:00 Hemoglobin A1c 5.8 % (4.8-5.6) Triglycerides Level 44 mg/dL (0-150) Cholesterol Level 204 mg/dL (0-200) LDL Cholesterol, Calculated 123 mg/dL (0-100) VLDL Cholesterol, Calculated 9 mg/dL (0-40) Non-HDL Cholesterol Calculated 132 mg/dL (0-129) HDL Cholesterol 72 mg/dL (40-60) Cholesterol/HDL Ratio 2.8 Thyroid Stimulating Hormone (TSH) 2.844 uIU/mL (0.358-3.74) Cortisol AM Sample 4.0 ug/dL (4.3-22.4) Glucose (Fingerstick) 74 mg/dL (70-99) 104 mg/dL (70-99) Sodium Level 141 mmol/L (136-145) Potassium Level 4.6 mmol/L (3.5-5.1) Chloride Level 106 mmol/L (98-107) Carbon Dioxide Level 27 mmol/L (21-32) Anion Gap 8 (6-14) Blood Urea Nitrogen 18 mg/dL (7-20) Creatinine 1.2 mg/dL (0.6-1.0) Estimated GFR (Cockcroft-Gault) 57.3 BUN/Creatinine Ratio 15 (6-20) Glucose Level 105 mg/dL (70-99) Calcium Level 9.1 mg/dL (8.5-10.1) Magnesium Level 2.2 mg/dL (1.8-2.4) Total Bilirubin 0.4 mg/dL (0.2-1.0) Aspartate Amino Transf (AST/SGOT) 15 U/L (15-37) Alanine Aminotransferase (ALT/SGPT) 21 U/L (14-59) Alkaline Phosphatase 76 U/L (46-116) Troponin I Quantitative < 0.017 ng/mL (0.000-0.055) Total Protein 6.9 g/dL (6.4-8.2) Albumin 3.5 g/dL (3.4-5.0) Albumin/Globulin Ratio 1.0 (1.0-1.7) Cortisol PM Sample 3.0 ug/dL (3.1-16.7) Test 03/29/20 16:01 Glucose (Fingerstick) 94 mg/dL (70-99) Medications Current Medications Ondansetron HCl (Zofran) 4 mg PRN Q8HRS PRN IV NAUSEA/VOMITING; Start 03/28/20 at 14:00; Stop 03/29/20 at 13:59; Status DC Acetaminophen (Tylenol) 1,000 mg 1X ONCE PO Last administered on 03/28/20at 14:10; Start 03/28/20 at 14:00; Stop 03/28/20 at 14:07; Status DC Acetaminophen/ Hydrocodone Bitart (Lortab 5/325) 1 tab PRN Q6HRS PRN PO PAIN La st administered on 03/28/20at 17:08; Start 03/28/20 at 16:45; Stop 03/29/20 at 11:17; Status DC Lisinopril (Prinivil) 10 mg DAILY PO Last administered on 03/30/20at 08:34; Start 03/29/20 at 09:00 Meloxicam (Mobic) 15 mg DAILY PO Last administered on 03/30/20at 08:33; Start 03/29/20 at 09:00 Non-Formulary Medication (Upadacitinib (Rinvoq ER)) 15 mg DAILY PO ; Start 03/29/20 at 09:00; Status UNV Acetaminophen/ Hydrocodone Bitart (Lortab 5/325) 1 tab PRN Q4HRS PRN PO PAIN Last administered on 03/29/20at 13:11; Start 03/28/20 at 21:30; Stop 03/30/20 at 09:54; Status DC Sumatriptan Succinate (Imitrex) 25 mg BID PO Last administered on 03/30/20at 08:33; Start 03/28/20 at 23:00; Stop 03/30/20 at 09:54; Status DC Polyethylene Glycol (miraLAX PACKET) 17 gm PRN DAILY PRN PO CONSTIPATION; Start 03/29/20 at 09:45 Levetiracetam (Keppra) 500 mg BID PO Last administered on 03/30/20at 08:34; St art 03/29/20 at 13:00; Stop 03/30/20 at 09:54; Status DC Lorazepam (Ativan Inj) 1 mg PRN Q4HRS PRN IVP ANXIETY / AGITATION Last administered on 03/29/20at 16:08; Start 03/29/20 at 12:45; Stop 03/30/20 at 09:54; Status DC Prednisone (Prednisone) 10 mg 1X ONCE PO Last administered on 03/29/20at 21:39; Start 03/29/20 at 21:00; Stop 03/29/20 at 21:01; Status DC Prednisone (Prednisone) 10 mg DAILY PO Last administered on 03/30/20at 08:34; Start 03/30/20 at 09:00; Stop 03/30/20 at 09:54; Status DC Acetaminophen (Tylenol) 650 mg PRN Q6HRS PRN PO pain Last administered on 03/30/20at 13:40; Start 03/30/20 at 13:15 Lorazepam (Ativan Inj) 1 mg 1X ONCE IVP Last administered on 03/30/20at 13:40; Start 03/30/20 at 13:30; Stop 03/30/20 at 13:31; Status DC Active Scripts Active Reported Rinvoq ER (Upadacitinib) 15 Mg Tab.er.24h 15 Mg PO DAILY Meloxicam 15 Mg Tablet 1 Tab PO DAILY 30 Days Lisinopril 10 Mg Tablet 1 Tab PO DAILY Vitals/I & O Vital Sign - Last 24 Hours 03/29/20 03/29/20 03/29/20 03/30/20 19:00 20:00 23:00 03:00 Temp 97.5 97.7 98.1 97.5 97.7 98.1 Pulse 61 74 57 Resp 18 18 18 B/P (MAP) 111/73 (86) 134/95 (108) 123/81 (95) Pulse Ox 100 100 100 O2 Delivery Room Air Room Air Room Air Room Air 03/30/20 03/30/20 03/30/20 03/30/20 07:56 08:00 08:34 11:00 Temp 97.8 98.1 97.8 98.1 Pulse 48 48 51 Resp 18 14 B/P (MAP) 101/57 (72) 101/57 130/77 (94) Pulse Ox 98 99 O2 Delivery Room Air Room Air Room Air 03/30/20 15:00 Temp 98.0 98.0 Pulse 82 Resp 16 B/P (MAP) 113/66 (82) Pulse Ox 98 O2 Delivery Room Air Intake and Output 03/29/20 03/29/20 03/30/20 15:00 23:00 07:00 Intake Total 600 ml 680 ml 0 ml Output Total 0 ml Balance 600 ml 680 ml 0 ml Justicifation of Admission Dx: Justifications for Admission: Justification of Admission Dx: N/A BI QUIÑONEZ MD Mar 30, 2020 16:52
[2020-03-30 19:00] VITALS: BP 124/85
[2020-03-30 23:00] VITALS: BP 120/72
[2020-03-31 03:00] VITALS: BP 123/77
--- NOTE | 2020-03-31 05:03 | NUR ---
Pt experiences seizure type activity at about 1930. Eyes rolled back, unresponsive to commands. Seizure unlike typical clonic tonic type seizure. No lethargy following event. Pt apparently unaware of incident that lasted aprox 1.5 minutes.
[2020-03-31 07:00] VITALS: BP 111/65
[2020-03-31] MEDS: UPADACITINIB 15 MG PO SCH (08:19)
[2020-03-31] MEDS: LISINOPRIL 10 MG TABLET PO SCH (08:20)
[2020-03-31] MEDS: MELOXICAM 7.5 MG TABLET PO SCH (08:21)
--- NOTE | 2020-03-31 08:45 | NUR ---
This RN witnessed pt demonstrate a period of unresponsiveness for 2-3 minutes with eyes rolling back. Pt unable to respond to or follow commands. Vital signs checked, WNL. Pt returned to normal activity after. This RN will continue to monitor closely and follow-up with pt.
[2020-03-31] MEDS: ACETAMINOPHEN 325 MG TABLET. PO PRN ×2 (08:49→22:13)
[2020-03-31 11:00] VITALS: BP 135/84
--- NOTE | 2020-03-31 12:00 | NUR ---
This RN witnessed pt have a 45 second seizure with daughter, Ashley at bedside. Eyes rolled back, gurgled breathing noted. Pt unable to respond to questions. Postictal pt drowsy, states she feels nauseous. Will continue to monitor.
--- NOTE | 2020-03-31 12:50 | NUR ---
This RN paged Dr. Granado and Dr. Regan in regards to pt's seizure activities. Will await response and monitor pt.
--- NOTE | 2020-03-31 13:35 | NUR ---
SW following. Discussed with RN. SW left voicemail for Dr. Regan to determine plan of care. Discussed with RN and dry starch supervisor, Sergio Hamilton. SKYE will continue to follow.
--- NOTE | 2020-03-31 13:49 | NUR ---
This RN spoke with Dr. Herrera in regards to pt's seizure activity. He stated to try nail bed pressure and observe response during seizure. He also stated the pt can discharge and follow up with [facility] or [facility] for video EEG monitoring. No additional orders received. Will monitor pt and relay information to Dr. Regan when available.
[2020-03-31 15:00] VITALS: BP 145/66
--- NOTE | 2020-03-31 16:20 | PDOC ---
PROGRESS NOTES Subjective Subjective Pt continues to have periods of seizure like activity and unresponsiveness. Objective Objective Vital Signs Date Time Temp Pulse Resp B/P (MAP) Pulse Ox O2 Delivery O2 Flow Rate FiO2 03/31/20 11:00 97.8 69 16 135/84 (101) 99 Room Air 97.8 Intake and Output 03/31/20 07:00 Intake Total 380 ml Balance 380 ml Intake Oral 380 ml # Voids 2 Physical Exam Abdomen: Normal bowel sounds, Soft Heart: Regular rate, Normal S1 Extremities: No clubbing General: Alert HEENT: Atraumatic Lungs: Clear to auscultation MUSCULOSKELETAL: No deformity Neck: Supple Neuro: Normal speech Psych/Mental Status: Mental status NL Skin: No breakdown Diagnosis Problem List Problems Medical Problems: (1) Seizure Status: Acute (2) Syncope Status: Acute Assessment Assessment Problems Medical Problems: (1) Seizure Status: Acute (2) Syncope Status: Acute FINAL IMPRESSION:Pt continues to have periods of seizure like movement and unresponsiveness. 1. Period of unresponsiveness, looks like a seizure VS Pseudo seizures. 2. This is the third or fourth episode this happened in last 1 yr. 3. Hypertension. 4. Rheumatoid arthritis. 5. History of weight loss surgery, she had a gastric bypass. PLAN: Pt continues to have seizure alike activites ,spoke with neurology , he recomended transfer to hospital which has inpatient continuos EEG monitoring. did not have beds available. spoke with social service ,will try at [facility] or [facility]. spoke with pts daughter , they do not feel comfortable taking her home, She prefers her to go to one of the above mentioned hospitals. pt had 2 episodes 03/29/20 , on one episode neurologist was on the floor and evaluated the patient during the episode , He does not think it was a true seizure. Pt had mri+mra of brain 10 months ago at [facility] , CT head neg here EEG neg for seizures. low cortisol (borderline low).will monitor Neurology does not recommend start seizure medications will schedule 3 day continuous EEG monitoring at or [facility] or [facility].. no driving or climbing height or swimming until the diagnosis is established. Plan Plan of Care Problems Medical Problems: (1) Seizure Status: Acute (2) Syncope Status: Acute Comment Review of Relevant I have reviewed the following items tay (where applicable) has been applied. Medications Current Medications Lorazepam (Ativan Inj) 1 mg PRN Q4HRS PRN IVP ANXIETY / AGITATION Last administered on 03/31/20at 12:56; Start 03/30/20 at 19:30 Vitals/I & O Vital Sign - Last 24 Hours 03/30/20 03/30/20 03/30/20 03/31/20 19:00 20:05 23:00 03:00 Temp 98.1 97.6 98.0 98.1 97.6 98.0 Pulse 118 80 63 Resp 18 18 18 B/P (MAP) 124/85 (98) 120/72 (88) 123/77 (92) Pulse Ox 96 98 98 O2 Delivery Room Air Room Air Room Air Room Air 03/31/20 03/31/20 03/31/20 03/31/20 07:00 08:11 08:20 11:00 Temp 98.0 97.8 98.0 97.8 Pulse 55 55 69 Resp 14 16 B/P (MAP) 111/65 (80) 111/65 135/84 (101) Pulse Ox 99 99 O2 Delivery Room Air Room Air Room Air Intake and Output 03/30/20 03/30/20 03/31/20 15:00 23:00 07:00 Intake Total 180 ml 200 ml Balance 180 ml 200 ml Justicifation of Admission Dx: Justifications for Admission: Justification of Admission Dx: N/A WINNIE SUNSHINE MD Mar 31, 2020 16:20
--- NOTE | 2020-03-31 16:22 | SNU/HH DC ---
DISCHARGE ORDERS DISCHARGE INFORMATION: DISCHARGE DATE: Mar 31, 2020 FINAL DIAGNOSIS Problems Medical Problems: (1) Seizure Status: Acute (2) Syncope Status: Acute CONDITION ON DISCHARGE: Stable CODE STATUS: Code Status: Full HOSPICE: HOSPICE: No LTAC: ADMIT TO LTAC: No POST DISCHARGE ORDERS: ACTIVITY ORDERS: Activity as tolerated WEIGHT BEARING STATUS: No restrictions DIET AFTER DISCHARGE: Low Sodium 2 gm CHECKS AFTER DISCHARGE: CHECKS AFTER DISCHARGE: Check blood press - daily DISCHARGE MEDICATIONS: Home Meds Reported Medications Upadacitinib (Rinvoq ER) 15 Mg Tab.er.24h, 15 MG PO DAILY for ARTHRITIS, TAB.SR 03/28/20 Meloxicam (MELOXICAM) 15 Mg Tablet, 1 TAB PO DAILY for ARTHRITIS for 30 Days, #30 TAB 0 Refills 03/28/20 Lisinopril (LISINOPRIL) 10 Mg Tablet, 1 TAB PO DAILY for HTN, #30 TAB 5 Refills 03/28/20 WINNIE SUNSHINE MD Mar 31, 2020 16:21
[2020-03-31] MEDS ORDERED: ENOXAPARIN 40 MG/0.4 ML SYRINGE. SQ SCH (17:00)
--- NOTE | 2020-03-31 17:17 | NUR ---
SKYE spoke with Dr. Herrera and Dr. Regan regarding hospital to hospital transfer for video EEG monitoring. SKYE phoned and faxed referral to [facility]. Pt accepted financially at [facility] and they will reach out to Dr. Herrera. Pt on the wait list and will transfer either tonight or tomorrow pending physician approval. SKYE notified RN, Dr. Regan and Dr. Herrera. [facility] transfer team provided with floor nurse number incase pt transfers tonight.
--- NOTE | 2020-03-31 17:18 | PDOC ---
PROGRESS NOTES Assessment Problems Medical Problems: (1) Seizure-she continues to have spells today. With the spell her eyes rolled back and she shakes. The postictal phase is quite short. I am still suspicious these are not electrographic seizure. [facility] was not able to take the patient in transfer. [facility] has her on a waiting list to take her in transfer. I will not increase the dosage of Keppra at this time. If spells are captured and not seizure then the Keppra can be discontinued. This medicine was just started on admission. She previously had an EEG and MRI at [facility] which were negative. I did not attempt to repeat the EEG at our facility as the spells are not very frequent. CT scan of the head was negative. I did not feel a repeat MRI would be helpful. Status: Acute (2) Syncope Status: Acute Plan We can hopefully have her transferred to [facility] where they can capture some spells on prolonged video EEG monitoring. The nature of the spells can be fully elucidated and appropriate treatment initiated. Subjective I had a few spells today. I have a little bit of a headache. Objective Vital Signs Date Time Temp Pulse Resp B/P (MAP) Pulse Ox O2 Delivery O2 Flow Rate FiO2 03/31/20 15:00 97.6 57 16 145/66 (92) 100 Room Air 97.6 Intake and Output 03/31/20 07:00 Intake Total 380 ml Balance 380 ml Intake Oral 380 ml # Voids 2 PHYSICAL EXAM She was alert, awake and cooperative. Speech was fluent and clear. She had a good fund of knowledge. Attention and concentration was intact. The eyes were conjugate and face symmetric. Movements were symmetric and well coordinated. Review of Relevant I have reviewed the following items tay (where applicable) has been applied. Medications Current Medications Ondansetron HCl (Zofran) 4 mg PRN Q8HRS PRN IV NAUSEA/VOMITING; Start 03/28/20 at 14:00; Stop 03/29/20 at 13:59; Status DC Acetaminophen (Tylenol) 1,000 mg 1X ONCE PO Last administered on 03/28/20at 14:10; Start 03/28/20 at 14:00; Stop 03/28/20 at 14:07; Status DC Acetaminophen/ Hydrocodone Bitart (Lortab 5/325) 1 tab PRN Q6HRS PRN PO PAIN Last administered on 03/28/20at 17:08; Start 03/28/20 at 16:45; Stop 03/29/20 at 11:17; Status DC Lisinopril (Prinivil) 10 mg DAILY PO Last administered on 03/31/20at 08:20; Start 03/29/20 at 09:00 Meloxicam (Mobic) 15 mg DAILY PO Last administered on 03/31/20at 08:21; Start 03/29/20 at 09:00 Non-Formulary Medication (Upadacitinib (Rinvoq ER)) 15 mg DAILY PO ; Start 03/29/20 at 09:00; Status UNV Acetaminophen/ Hydrocodone Bitart (Lortab 5/325) 1 tab PRN Q4HRS PRN PO PAIN Last administered on 03/29/20at 13:11; Start 03/28/20 at 21:30; Stop 03/30/20 at 09:54; Status DC Sumatriptan Succinate (Imitrex) 25 mg BID PO Last administered on 03/30/20at 08:33; Start 03/28/20 at 23:00; Stop 03/30/20 at 09:54; Status DC Polyethylene Glycol (miraLAX PACKET) 17 gm PRN DAILY PRN PO CONSTIPATION; Start 03/29/20 at 09:45 Levetiracetam (Keppra) 500 mg BID PO Last administered on 03/30/20at 08:34; Start 03/29/20 at 13:00; Stop 03/30/20 at 09:54; Status DC Lorazepam (Ativan Inj) 1 mg PRN Q4HRS PRN IVP ANXIETY / AGITATION Last administered on 03/29/20at 16:08; Start 03/29/20 at 12:45; Stop 03/30/20 at 09: 54; Status DC Prednisone (Prednisone) 10 mg 1X ONCE PO Last administered on 03/29/20at 21:39; Start 03/29/20 at 21:00; Stop 03/29/20 at 21:01; Status DC Prednisone (Prednisone) 10 mg DAILY PO Last administered on 03/30/20at 08:34; Start 03/30/20 at 09:00; Stop 03/30/20 at 09:54; Status DC Acetaminophen (Tylenol) 650 mg PRN Q6HRS PRN PO pain Last administered on 03/31/20at 08:49; Start 03/30/20 at 13:15 Lorazepam (Ativan Inj) 1 mg 1X ONCE IVP Last administered on 03/30/20at 13:40; Start 03/30/20 at 13:30; Stop 03/30/20 at 13:31; Status DC Lorazepam (Ativan Inj) 1 mg PRN Q4HRS PRN IVP ANXIETY / AGITATION Last administered on 03/31/20at 12:56; Start 03/30/20 at 19:30 Enoxaparin Sodium (Lovenox 40mg Syringe) 40 mg Q24H SQ Last administered on 03/31/20at 17:09; Start 03/31/20 at 17:00 Active Scripts Active Reported Rinvoq ER (Upadacitinib) 15 Mg Tab.er.24h 15 Mg PO DAILY Meloxicam 15 Mg Tablet 1 Tab PO DAILY 30 Days Lisinopril 10 Mg Tablet 1 Tab PO DAILY Vitals/I & O Vital Sign - Last 24 Hours 03/30/20 03/30/20 03/30/20 03/31/20 19:00 20:05 23:00 03:00 Temp 98.1 97.6 98.0 98.1 97.6 98.0 Pulse 118 80 63 Resp 18 18 18 B/P (MAP) 124/85 (98) 120/72 (88) 123/77 (92) Pulse Ox 96 98 98 O2 Delivery Room Air Room Air Room Air Room Air 03/31/20 03/31/20 03/31/20 03/31/20 07:00 08:11 08:20 11:00 Temp 98.0 97.8 98.0 97.8 Pulse 55 55 69 Resp 14 16 B/P (MAP) 111/65 (80) 111/65 135/84 (101) Pulse Ox 99 99 O2 Delivery Room Air Room Air Room Air 03/31/20 15:00 Temp 97.6 97.6 Pulse 57 Resp 16 B/P (MAP) 145/66 (92) Pulse Ox 100 O2 Delivery Room Air Intake and Output 03/30/20 03/30/20 03/31/20 15:00 23:00 07:00 Intake Total 180 ml 200 ml Balance 180 ml 200 ml Justicifation of Admission Dx: Justifications for Admission: Justification of Admission Dx: N/A BI QUIÑONEZ MD Mar 31, 2020 17:18
[2020-03-31 19:00] VITALS: BP 100/58
[2020-03-31 23:00] VITALS: BP 122/82
[2020-04-01 03:00] VITALS: BP 105/72
[2020-04-01 07:31] VITALS: BP 136/83
[2020-04-01] MEDS: ACETAMINOPHEN 325 MG TABLET. PO PRN (08:11)
[2020-04-01] MEDS: MELOXICAM 7.5 MG TABLET PO SCH (09:00)
[2020-04-01] MEDS: LISINOPRIL 10 MG TABLET PO SCH (09:00)
[2020-04-01] MEDS: UPADACITINIB 15 MG PO SCH (09:00)
--- NOTE | 2020-04-01 09:46 | NUR ---
THIS DOWEL MAKER WAS CALLED TO THE PATIENTS' ROOM FOR SUSPECTED SEIZURE WITNESSED BY THE PATIENTS' FAMILY MEMBERS OVER HER I PHONE, UPON ENTERING THE ROOM ALONGSIDE DR. SUNSHINE WHO WAS ON THE UNIT IT WAS OBSERVED THAT PATIENT WAS NOT RESPONDING VERBALLY, EYES CLOSED WITH TWITCHING OBSERVED AND FINE TREMORS OF HER HANDS, PATIENTS VITALS ARE FOLLOWS; 147/87,20,65, 95% ON ROOM AIR. DR. SUNSHINE COMMUNICATED WITH FAMILY MEMBERS OVER THE CELL PHONE.
--- NOTE | 2020-04-01 10:18 | PDOC ---
PROGRESS NOTES Subjective Subjective this morning pt was fine talking ,explained that she will go to [facility].Few minutes later pt was face timing her family and she had seizure like activity at that time ,they called the floor ,i went and saw the pt , she had twitchings in face and rt arm shaking eye rolling, she was not responsive , she was post ictal . Objective Objective Vital Signs Date Time Temp Pulse Resp B/P (MAP) Pulse Ox O2 Delivery O2 Flow Rate FiO2 04/01/20 07:31 97.6 59 18 136/83 (100) 100 97.6 03/31/20 20:00 Room Air Intake and Output 04/01/20 07:00 Intake Total 600 ml Balance 600 ml Intake Oral 600 ml # Voids 1 Physical Exam Abdomen: Normal bowel sounds, Soft Heart: Regular rate, Normal S1 Extremities: No clubbing HEENT: Atraumatic Lungs: Clear to auscultation MUSCULOSKELETAL: No deformity Neck: Supple Neuro: Normal speech Psych/Mental Status: Mental status NL Skin: No breakdown Diagnosis Problem List Problems Medical Problems: (1) Seizure Status: Acute (2) Syncope Status: Acute Assessment Assessment Problems Medical Problems: (1) Seizure Status: Acute (2) Syncope Status: Acute FINAL IMPRESSION:Pt continues to have periods of seizure like movement and unresponsiveness. 1. Period of unresponsiveness, looks like a seizure VS Pseudo seizures. 2. This is the third or fourth episode this happened in last 1 yr. 3. Hypertension. 4. Rheumatoid arthritis. 5. History of weight loss surgery, she had a gastric bypass. PLAN: seizure like activity this morning witnessed by me and the RN. . spoke with family daughter and pts brother today. [facility] transfer [facility]I when the bed is avilable. spoke with epilepsy specialist from [facility] yesterday dr Sharma, who accepted the pt. Pt continues to have seizure alike activites ,spoke with neurology , he recomended transfer to hospital which has inpatient continuos EEG monitoring. [facility] did not have beds available. spoke with social service ,will try at [facility] or [facility]. spoke with pts daughter , they do not feel comfortable taking her home, She prefers her to go to one of the above mentioned hospitals. pt had 2 episodes 03/29/20 , on one episode neurologist was on the floor and evaluated the patient during the episode , He does not think it was a true seizure. Pt had mri+mra of brain [address] [facility] , [place] head neg here EEG neg for seizures. low cortisol (borderline low).will monitor Neurology does not recommend start seizure medications will schedule 3 day continuous EEG monitoring at or [facility] or [facility].. no driving or climbing height or swimming until the diagnosis is established. Plan Plan of Care Problems Medical Problems: (1) Seizure Status: Acute (2) Syncope Status: Acute Comment Review of Relevant I have reviewed the following items tay (where applicable) has been applied. Medications Current Medications Enoxaparin Sodium (Lovenox 40mg Syringe) 40 mg Q24H SQ Last administered on at 17:09; Start 03/31/20 at 17:00 Vitals/I & O Vital Sign - Last 24 Hours 03/31/20 03/31/20 03/31/20 03/31/20 11:00 15:00 19:00 20:00 Temp 97.8 97.6 98.4 97.8 97.6 98.4 Pulse 69 57 96 Resp 16 16 16 B/P (MAP) 135/84 (101) 145/66 (92) 100/58 (72) Pulse Ox 99 100 96 O2 Delivery Room Air Room Air Room Air 03/31/20 04/01/20 04/01/20 23:00 03:00 07:31 Temp 97.6 97.8 97.6 97.6 97.8 97.6 Pulse 93 55 59 Resp 18 16 18 B/P (MAP) 122/82 (95) 105/72 (83) 136/83 (100) Pulse Ox 97 95 100 Intake and Output 03/31/20 03/31/20 04/01/20 15:00 23:00 07:00 Intake Total 120 ml 360 ml 120 ml Balance 120 ml 360 ml 120 ml Justicifation of Admission Dx: Justifications for Admission: Justification of Admission Dx: N/A WINNIE SUNSHINE MD Apr 01, 2020 10:18
--- NOTE | 2020-04-01 11:01 | NUR ---
SW following. Spoke with RN and reviewed chart. Coordinate care with Dr. Regan. Pt accepted for hospital to hospital transfer to [facility] [place] for today, 04/01/2020. RN to call report to Ira with the transfer team at [phone]. Clinicals copied to be sent with patient. Hospital to hospital transfer form as well as medical necessity ambulance transport form completed. SKYE phoned and faxed completed form to [facility] [employer] and arranged for 1400 transport time, , (fax). Pt to transport to Neuro A Room 9 per Ira with [facility]. No further SW needs at this time. Addendum: 04/01/20 at 1522 by NIKKI CHEUNG Hospital to hospital transfer form signed by pt and she is agreeable to transfer today.
[2020-04-01 11:20] VITALS: BP 118/82
--- NOTE | 2020-04-01 14:00 | NUR ---
REPORT CALLED TO [facility]' QUESTIONS AND CONCERNS ANSWERED.
--- NOTE | 2020-04-01 14:30 | NUR ---
PATIENT ALERT AND VERBALLY RESPONSIVE, UP TO BATHROOM AD LINDA, SITTING IN BED AT THIS TIME TALKING TO FAMILY MEMBERS ON THE PHONE. SALINE LOCK REMAINS IN PLACE TO RIGHT FOREARM AREA PER THE REQUEST OF THE RECEIVING NURSE AT [facility].
--- NOTE | 2020-04-01 15:00 | NUR ---
PATIENT LEAVES THE UNIT PER STRETCHER AND ACCOMPANIED BY 2 PARAMEDICS, EMOTIONAL SUPPORT GIVEN AND ALL PERSONAL BELONGINGS SENT WITH PATIENT.
--- NOTE | 2020-04-04 08:28 | PDOC ---
Provider Note Provider Note Discharge summary dictated.#[id number]. Justicifation of Admission Dx: Justifications for Admission: Justification of Admission Dx: N/A WINNIE SUNSHINE MD Apr 04, 2020 08:28
--- NOTE | 2020-04-04 08:47 | EEG ---
DATE OF SERVICE: 03/29/2020 ELECTROENCEPHALOGRAM NUMBER: [id number] OBJECTIVE: The patient is a 49-year-old female with possible seizure. DESCRIPTION: This is a digital study. Electrodes are placed according to the international 10-20 system. Bipolar and referential montages are available. Activation procedures typically include hyperventilation and intermittent photic stimulation. INTERPRETATION: The waking background consists of 7-8 Hz, 20-50 microvolt activity, symmetrically distributed over parietooccipital regions and reactive to eye opening. Hyperventilation and intermittent photic stimulation are noncontributory. Stage 2 sleep is achieved with normal electroencephalogram patterns. IMPRESSION: This electroencephalogram with the patient awake and asleep is abnormal because of a mild, diffuse disturbance of cerebral activity consistent with any of a variety of toxic or metabolic encephalopathies. There is no focal, paroxysmal, or epileptiform activity. Thank you for letting us help with the patient's care. TUNG GARCIA MD DR: NAI/rudi JOB#: [id number] / [id number]
--- NOTE | 2020-04-04 09:06 | DS ---
DATE OF DISCHARGE: 04/01/2020 REASON FOR ADMISSION TO THE HOSPITAL: Seizure-like activity, near syncopal episodes. CONSULTATIONS: Dr. Starr, Neurology. PROCEDURES DONE: CT head. HOSPITAL COURSE: The patient is a 49-year-old female. The patient has episodes of unresponsiveness where she would become unresponsive, roll her eyes, and passed out. This happened at least 3 times. She had been to [facility] Emergency Room and had a CT of the head, MRI of the brain. She also seen epilepsy specialist at [facility] and he felt it was pseudoseizures, but he recommended inpatient 3-day video monitoring for seizure activity. The patient refused at that time, this was last year. The patient had 2 episodes, one couple of days before coming to the hospital and another one had a witnessed seizure-like activity in the office. She became unresponsive, eyes were rolling, heavy breathing and after a couple of minutes she came back. The patient was sent to the ER by ambulance. CT head was negative. Neurology was consulted. The patient had these episodes more often in the hospital, had one episode, neurologist was on the floor, he witnessed her activity and she was responsive post-seizure and his impression was possibly pseudoseizures. However, we could not do a continuous EEG monitoring and it was felt that she would need to go to inpatient center where continuous video monitoring [facility] was contacted and the patient was transferred to [facility] Neurology Unit for inpatient video monitoring. FINAL DIAGNOSES: 1. Possible seizures versus possible pseudoseizures. 2. History of rheumatoid arthritis. 3. Hypertension. 4.H/O gastric bypass. PLAN: At this time, the patient is transferred to [facility] for further investigation and treatment. WINNIE SUNSHINE MD DR: NAHUN/rudi JOB#: [id number] / [id number] ANTONIO
== END 2020-04-01 15:00 | disposition short-term general hospital (02) | DRG 101 ==
LOC: ER 11:47 → 5 NORTH 14:25 → OBSVTOIN 03-29 16:39
PROVIDERS: ADMIT Internal Medicine; ATTEND Internal Medicine
DX: R56.9 Unspecified convulsions (principal); I10 Essential (primary) hypertension; M06.9 Rheumatoid arthritis, unspecified; M19.90 Unspecified osteoarthritis, unspecified site; Z82.61 Family history of arthritis; Z98.51 Tubal ligation status; Z98.84 Bariatric surgery status; Z79.899 Other long term (current) drug therapy
CPT/HCPCS: 36415; 70450; 71045; 80053; 80061; 81001; 82533; 82962; 83036; 83690; 83735; 83880; 84443; 84484; 85025; 85610; 93005; 95816; 99285; G0378; G0379; J1650; J2060; J7512

== ENCOUNTER 2021-04-20 18:56 | Emergency (ER) | payer OTHER ==
[~2021-04-20] VITALS: Ht 160 cm; Wt 101.4 kg
[~2021-04-20 18:56] MED LIST changes: +LISI10TA16 PO; +MELO15TA23 PO; -REGADENOSON 0.4 MG/5 ML DISP.SYRIN. IV ONE; +UPAD15TA PO
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
[2021-04-20] MEDS ORDERED: MELO15TA23 PO (20:25)
[2021-04-20] MEDS ORDERED: CYCL10TA2 PO (20:25)
[2021-04-20 21:30] VITALS: BP 151/86
== END 2021-04-20 21:35 | disposition home or self-care (01) ==
LOC: ER 18:56
DX: M54.5 Low back pain (principal); R51.9 Headache, unspecified; I10 Essential (primary) hypertension; M06.9 Rheumatoid arthritis, unspecified; Z98.51 Tubal ligation status; Z98.84 Bariatric surgery status; V89.2XXA Person injured in unspecified motor-vehicle accident, traffic, initial encounter; Y93.I9 Activity, other involving external motion; Y92.89 Other specified places as the place of occurrence of the external cause; Y99.8 Other external cause status
CPT/HCPCS: 70450; 72131; 99285-25